=== PATIENT | male | born 1990 | race Caucasian/White ===

== ENCOUNTER 2016-11-30 16:28 | Emergency (ER) | payer SELFPAY ==
[~2016-11-30] VITALS: Ht 165.1 cm; Wt 59.0 kg
[~2016-11-30 16:28] MED LIST: ELIMITE 5%60 GM/TUB1 TP
--- NOTE | 2016-11-30 17:01 | Urgent Treatment Center Report ---
History of Present Issue Date/Time Seen by Provider 11/30/16 1650 Visit Reason Pt arrived:Walked Presenting Problem:PT STATES HE HASN'T FELT WELL. HES HAD DIARRHEA X 1 WEEK AMD STOMACH ACHE. DENIES FEVER, ABD PAIN, AND VOMITING. Location if Accident: Onset of symptoms date/time:/ or onset unknown for:MEDICAL HX UNKNOWN Have you (or family members/close friends) recently traveled outside the [place]? N If Yes, where/when: Have you had exposure to infectious disease within the past month? TB? Other? Specify: Paitent state that he hasn't been feeling well States that he has had the diarrhea on and off for the last little bit but for the last two days it has been freqent not sure if he may have been exposed to "stomach virus" States that when he eats something his stomach will cramp and then he will have to go to the bathroom ALLERGIES Coded Allergies: Sulfa (Sulfonamide Antibiotics) (Mild, 08/10/16) History Medical History General Angina: No CO: No Hypertension? No Hyperlipidemia? No COPD? No Asthma? No CVA? No Seizures? No Diabetes? No GB Disease: No MRSA? No TB? No Cancer? No Immunization HX DT/Tetanus 1-4 YRS Surgical Hx Previous Surgery?N Social History Smoking Hx Smoker: Never Smoker Tobacco: No Alcohol Alcohol: No Review of Systems All Other Systems Reviewed and Negative Gastrointestinal denies diarrhea, other (cramping at times) Physical Exam Vital Signs Vital Signs Date Time Temp Pulse Resp B/P Pulse O2 O2 Flow FiO2 Ox Delivery Rate 11/30 1638 98.0 106 18 121/89 97 General Appearance normal appearance, WD/WN, no apparent distress Respiratory Status Yes: trachea midline, chest symmetrical. No: respiratory distress. Cardiovascular normal exam, no peripheral edema Gastrointestinal normal bowel sounds, normal exam, non tender Neurologic alert, normal exam, oriented x 3 Medical Decision Making LABS/Meds/Orders Pt receiving controlled substance in ED? No Departure Departure Time of Disposition 1707 Disposition DC Home or Self Care(routine) Clinical Impression Primary Impression: Viral gastroenteritis Condition STABLE Patient Instructions DI for Viral Gastroenteritis -- Adult, Viral Gastroenteritis Additional Instructions Drink gatoraid, eat bland diet such as toast crackers peanut butter etc avoid spicy or fried foods this while upset your stomach and you need to let your stomach rest Return if needed Follow up with family doctor Discharge Counseling Counseled pt/family regarding diagnosis, home care, follow up needs at [phone]
[2016-11-30 17:10] VITALS: BP 121/89
--- OUTSIDE RECORDS SUMMARY | 2016-12-02 17:47 | External Medical Summary Rpt ---
Author Author YAKOV Mcdonald, [employer] Organization [employer] Address Unknown Phone Unavailable Results CHLAMYDIA AND GONORRHEA TESTING Observa Value Referen Units Interpr Notes Date tion ce etation Range COLLECT AH/GENP No No No No Nov 25 OR ROBE informa informa informa informa 2016 tion in tion in tion in tion in 9:00 AM source source source source data data data data ETHNICI WHITE, No No No No Nov 25 TY NON-HIS informa informa informa informa 2016 PANIC tion in tion in tion in tion in 9:00 AM source source source source data data data data KIT 12-31-2 No No No No Nov 25 EXPIRAT 016 informa informa informa informa 2016 ION tion in tion in tion in tion in 9:00 AM DATE source source source source data data data data SYMPTOM NO No No No No Nov 25 S informa informa informa informa 2016 tion in tion in tion in tion in 9:00 AM source source source source data data data data REASON SEX No No No No Nov 25 FOR PARTNER informa informa informa informa 2016 REQUEST tion in tion in tion in tion in 9:00 AM REFERRA source source source source L data data data data SPECIME URINE No No No No Nov 25 N informa informa informa informa 2016 SOURCE tion in tion in tion in tion in 9:00 AM source source source source data data data data PREGNAN NO No No No No Nov 25 T informa informa informa informa 2016 tion in tion in tion in tion in 9:00 AM source source source source data data data data CHART N/A No No No No Nov 25 NUMBER informa informa informa informa 2016 tion in tion in tion in tion in 9:00 AM source source source source data data data data Chlamyd POSITIV No No No NEGATIV Nov 25 ia E informa informa informa E 2016 trachom tion in tion in tion in RESULT= 9:00 AM atis source source source WITHIN rRNA data data data NORMAL [Presen ce] in LIMITSP Unspeci OSITIVE fied specime RESULT= n by Probe & ABNORMA target LEQUIVO NAYE amplifi RESULT= cation method INDETER MINATEU NSATISF ACTORY RESULT= INVALID Neisser NEGATIV No No No NEGATIV Nov 25 ia E informa informa informa E 2016 gonorrh tion in tion in tion in RESULT= 9:00 AM oeae source source source WITHIN rRNA data data data NORMAL [Presen ce] in LIMITSP Unspeci OSITIVE fied specime RESULT= n by Probe & ABNORMA target LEQUIVO NAYE amplifi RESULT= cation method INDETER MINATEU NSATISF ACTORY RESULT= INVALID THE APTIMA COMBO 2 ASSAY IS NOT INTENDE D FOR THE EVALUAT ION OF SUSPECT EDSEXUA L ABUSE OR FOR OTHER MEDICO- LEGAL INDICAT IONS. FOR THOSE PATIENT S FORWHOM A FALSE POSITIV E RESULT MAY HAVE ADVERSE PSYCHO- SOCIAL IMPACT, [facility] MM[facility] RETESTI NG.\.br \This report contain s patient informa tion that must be protect ed in accorda nce with the Health Insuran ce Portabi lity and Account ability Act. CHLAMYDIA AND GONORRHEA TESTING Observa Value Referen Units Interpr Notes Date tion ce etation Range COLLECT AH/GENP No No No No Nov 25 OR ROBE informa informa informa informa 2016 tion in tion in tion in tion in 9:00 AM source source source source data data data data ETHNICI WHITE, No No No No Nov 25 TY NON-HIS informa informa informa informa 2016 PANIC tion in tion in tion in tion in 9:00 AM source source source source data data data data KIT 12-31-2 No No No No Nov 25 EXPIRAT 016 informa informa informa informa 2016 ION tion in tion in tion in tion in 9:00 AM DATE source source source source data data data data SYMPTOM NO No No No No Nov 25 S informa informa informa informa 2016 tion in tion in tion in tion in 9:00 AM source source source source data data data data REASON SEX No No No No Nov 25 FOR PARTNER informa informa informa informa 2016 REQUEST tion in tion in tion in tion in 9:00 AM REFERRA source source source source L data data data data SPECIME URINE No No No No Nov 25 N informa informa informa informa 2016 SOURCE tion in tion in tion in tion in 9:00 AM source source source source data data data data PREGNAN NO No No No No Nov 25 T informa informa informa informa 2016 tion in tion in tion in tion in 9:00 AM source source source source data data data data CHART N/A No No No No Nov 25 NUMBER informa informa informa informa 2016 tion in tion in tion in tion in 9:00 AM source source source source data data data data Chlamyd Pending No No No No Nov 25 ia informa informa informa informa 2016 trachom tion in tion in tion in tion in 9:00 AM atis source source source source rRNA data data data data [Presen ce] in Unspeci fied specime n by Probe & target amplifi cation method Neisser Pending No No No \.br\Nov 25 ia informa informa informa is 2016 gonorrh tion in tion in tion in report 9:00 AM oeae source source source contain rRNA data data data s [Presen patient ce] in Unspeci informa fied tion specime that n by must be Probe & target protect ed in amplifi accorda cation nce method with the Health Insuran ce Portabi lity and Account ability Act.
--- OUTSIDE RECORDS SUMMARY | 2016-12-02 17:47 | External Medical Summary Rpt | CCD ---
Author Author , YAKOV NAGY Address Unknown Phone [email or web address] Immunization Name Date Rout CVX Reac Dose Comm Prov Is Faci e tion ent ider Refu lity Give sed n Tdap 06-1 115 999 Hist H149 No H149 , -20 oric Adso 06 al rbed Info rmat ion - Sour ce Unsp ecif ied MMR 01-0 3 999 Hist H149 No H149 9- oric 98 al Info rmat ion - Sour ce Unsp ecif ied Nguyễn 01-0 2 999 Hist H149 No H149 o-OP 9- oric V 98 al Info rmat ion - Sour ce Unsp ecif ied DTaP 01-0 107 999 Hist H149 No H149 , UF - oric 98 al Info rmat ion - Sour ce Unsp ecif ied
--- OUTSIDE RECORDS SUMMARY | 2016-12-02 17:47 | External Medical Summary Rpt ---
[...] MAY HAVE ADVERSE PSYCHO- SOCIAL IMPACT, [facility] NG.\.br \This report contain s [...]
--- OUTSIDE RECORDS SUMMARY | 2016-12-02 17:47 | External Medical Summary Rpt | CCD ---
Demographics Preferred Language Hungarian Marital Status Unknown Yazdanism Affiliation Unknown Race Unknown Ethnic Group Unknown Author Author , ESTHELA WEBBZHAO Address Unknown Phone [email or web address] Providers Care Motorboat Mechanic Helper Name Role Phone [facility] # Unavailable Unavailable [phone], [facility] # [id number] Purpose Continuity of Care Document - 11-26-2009 through 2016 Medications Na ND Rx Da Fi Fi Am Da Di Ph RX Ph St me C No te ll ll ou ys ag ar # ys at rm s nt no ma ic us Or Da si cy ia de te s n re d AM 00 04 04 0 20 10 WA 71 FL Ac OX 78 -1 -1 .0 L- 15 OR ti -C 11 8- 8- 00 MA 59 EN ve LA 85 20 20 RT 9 CE V 22 11 11 87 0 PH SA 5- AR RA 12 MA H 5 CY L MG # TA 10 BL 05 ET 91 VA 00 04 04 0 5. 5 WA 71 FL Ac ED 59 -1 -1 00 L- 15 OR ti NI 15 8- 8- 0 MA 60 EN ve SO 44 20 20 RT 0 CE NE 30 11 11 1 PH SA 20 AR RA MA H MG CY L # TA BL 10 ET 05 91 IB 68 10 10 0 [address] Ac UP 64 -0 -0 .0 L- 89 EP ti RO 50 6- 8- 00 MA 50 HE ve FE 22 20 20 RT 0 NS N 25 10 10 80 4 PH KE 0 AR MG MA N CY C TA # BL ET 10 05 91 AM 00 10 10 0 [address] Ac OX 78 -0 -0 .0 L- 89 EP ti IC 12 6- 8- 00 MA 50 HE ve IL 61 20 20 RT 4 NS LI 33 10 10 N 1 PH KE 50 AR 0 MA N MG CY C # CA PS 10 UL 05 E 91
--- OUTSIDE RECORDS SUMMARY | 2016-12-02 17:47 | External Medical Summary Rpt | CCD ---
Demographics Preferred Language Austrian Marital Status Unknown Voodoo Affiliation Unknown Race Unknown Ethnic Group Unknown Author Author , ESTHELA WEBBZHAO Address Unknown Phone [email or web address] Care Team Providers Care Chef De Partie Name Role Phone [facility] # Unavailable Unavailable [phone], [facility] # [id number] Purpose Continuity of Care Document - 11-26-2009 [...] # TA 10 BL 05 ET 91 [place] 00 04 04 0 5. 5 [place] [...]
--- OUTSIDE RECORDS SUMMARY | 2016-12-02 17:47 | External Medical Summary Rpt | CCD ---
Author Author , YAKOV NAGY Address Unknown Phone [email or web address] Care Team Providers Care Freedom Of Information Officer Name Role Phone [facility] # Unavailable Unavailable [id number], [facility] # [id number] Purpose Continuity of Care Document - 11-26-2009 [...] # TA 10 BL 05 ET 91 [place] 00 04 04 0 5. 5 [place] [...] CA PS 10 UL 05 E 91 Results Labs Lab Lab Date Result Refere Interp Status Commen Order Detail nces retati t Range on CHLAMYDIA AND GONORRHEA TESTING (11-26-2015 09:00) Chlamyd POSITIV complet ia 016 E ed trachom 09:00 atis rRNA [Presen ce] in Unspeci fied specime n by Probe & target amplifi cation method Neisser NEGATIV complet ia 016 E ed gonorrh 09:00 oeae rRNA [Presen ce] in Unspeci fied specime n by Probe & target amplifi cation method CHLAMYDIA AND GONORRHEA TESTING (11-26-2015 09:00) COLLECT AH/GENP complet OR 016 ROBE ed 09:00 ETHNICI WHITE, complet TY 016 NON-HIS ed 09:00 PANIC KIT complet EXPIRAT 016 016 ed ION 09:00 DATE SYMPTOM NO complet S 016 ed 09:00 REASON SEX complet FOR 016 PARTNER ed REQUEST 09:00 REFERRA L SPECIME URINE complet N 016 ed SOURCE 09:00 PREGNAN NO complet T 016 ed 09:00 CHART N/A complet NUMBER 016 ed 09:00 Chlamyd Pending complet ia 016 ed trachom 09:00 atis rRNA [Presen ce] in Unspeci fied specime n by Probe & target amplifi cation method Neisser Pending complet ia 016 ed gonorrh 09:00 oeae rRNA [Presen ce] in Unspeci fied specime n by Probe & target amplifi cation method
--- OUTSIDE RECORDS SUMMARY | 2016-12-02 17:47 | External Medical Summary Rpt | CCD ---
Author Author , YAKOV NAGY Address Unknown Phone [email or web address] Care Team Providers Care Bee Breeder Name Role Phone [facility] # Unavailable Unavailable [phone], [facility] # [id number] Purpose Continuity of Care Document - 11-26-2009 [...] # TA 10 BL 05 ET 91 [place] 00 04 04 0 5. 5 [place] [...]
--- OUTSIDE RECORDS SUMMARY | 2016-12-02 17:47 | External Medical Summary Rpt | CCD ---
Author Author , YAKOV NAGY Address Unknown Phone [email or web address] Immunization Name Date Rout CVX Reac Dose [...]
== END 2016-11-30 17:10 | disposition home or self-care (01) ==
LOC: UTC 16:28
DX: A08.4 Viral intestinal infection, unspecified (principal); Z88.2 Allergy status to sulfonamides